=== PATIENT | male | born 1965 | race Caucasian/White ===

== ENCOUNTER 2017-08-31 10:55 | Emergency (ER) | payer OTHER ==
[2017-08-31] MEDS ORDERED: NA CHLORIDE 0.9% 500 ML ONE (12:24)
[2017-08-31] MEDS ORDERED: KETOROLAC 30 MG/ML INJ ONE (12:24)
[2017-08-31 12:40] LABS: Potassium 4.2 mEq/L (3.6-5.0)
[2017-08-31 12:56] LABS: Absolute Lymphocytes (CBC) 1.6 K/uL (0.7-4.9); Absolute Monocytes 0.6 K/uL (0.1-1.3); Absolute Neutrophil 9.6 K/uL (1.8-8.0); Basophils % 1.2 % (0-1.3); Eosinophils % 1.9 % (0-4.4); Hematocrit 43.8 % (39.6-49.0); Lymphocytes % 13.2 % (15.3-44.8); MCH 31.8 pg (27.0-35.0); MCV 93.3 fL (80-100); MPV 9.1 fL (7.6-11.3); Monocytes % 5.2 % (3.3-12.3)
--- NOTE | 2017-08-31 13:32 | RAD REPORT ---
EXAM DESCRIPTION: CT - Abdomen Pelvis W Contrast - 08/31/2017 1:18 pm CLINICAL HISTORY: Pt. states he has been having RUQ pain for one week. He also reports Hx of cholecy stectomy. States he is scheduled to have an US of liver on the but the pain is too bad to wait. COMPARISON: CT study December 2015 TECHNIQUE: Biphasic, helical CT imaging of the abdomen and pelvis was performed following 100 ml non -ionic IV contrast. Oral contrast was given. All CT scans are performed using dose optimization technique as appropriate and may include automated exposure control or mA/KV adjustment according to patient size. FINDINGS: No suspicious findings in the lung bases. No pericardial thickening or effusion. The liver, spleen, and pancreas show no suspicious findings. Cholecystectomy clips are present. No bi liary tree dilatation. Symmetric renal function is seen with no hydronephrosis or suspicious renal mass. No pyelonephritis o r acute renal parenchymal process. Left-sided renal cysts are similar to comparison. Minimal fullness of the adrenal glands unchanged back to 2016. No urinary bladder abnormality. Prostate gland and gaston inal vesicles show no acute findings. No dilated bowel loops or bowel wall thickening. No appendicitis findings. No free air, free fluid or inflammatory stranding. No hernia, mass or bulky lymphadenopathy. No suspicious bony findings. IMPRESSION: Status post cholecystectomy with no biliary tree dilatation. No pancreatitis or other ri ght upper quadrant abnormality. Remainder the study also without an acute or suspicious finding. No significant changes from comparis on study.
--- NOTE | 2017-08-31 14:01 | EDPHYS ---
Physician Documentation [facility] Name: Andrew Devries Age: 51 yrs Sex: Male : 1965 Arrival Date: 08/31/2017 Time: 10:57 Bed 20 Private MD: ED Physician Frank Callaway HPI: 08/31 12:28 This 51 yrs old Male presents to ER via Ambulatory with complaints of Side kdr Pain. 12:28 The patient presents with abdominal pain in the right upper quadrant. Onset: The kdr symptoms/episode began/occurred gradually, 2 week(s) ago. The symptoms do not radiate. Associated signs and symptoms: Pertinent positives: States that when he coughs, it hurts worse in the RUQ and he also has pain through his left shoulder.. The symptoms are described as achy, constant, crampy. Modifying factors: The symptoms are alleviated by nothing, the symptoms are aggravated by coughing, breathing deeply, movement. Severity of pain: At its worst the pain was severe in the emergency department the pain is unchanged. The patient has not experienced similar symptoms in the past. The patient has been recently seen by a physician: the patient's primary care provider, Had a CXR done which was reported to be negative by the patient. Historical: - Allergies: 11:03 PENICILLINS; la1 - PMHx: 11:03 GERD; Hypertension; schizoeffective disorder; la1 - PSHx: 11:03 Cholecystectomy; la1 - Immunization history:: Adult Immunizations up to date. - Social history:: Smoking status: Patient uses tobacco products, smokes two packs cigarettes per day. ROS: 12:28 Constitutional: Negative for fever, chills, and weight loss, Eyes: Negative for injury, kdr pain, redness, and discharge, ENT: Negative for injury, pain, and discharge, Neck: Negative for injury, pain, and swelling, Cardiovascular: Negative for chest pain, palpitations, and edema, Respiratory: Negative for shortness of breath, cough, wheezing, and pleuritic chest pain, Back: Negative for injury and pain, : Negative for injury, bleeding, discharge, and swelling, MS/Extremity: Negative for injury and deformity, Skin: Negative for injury, rash, and discoloration, Neuro: Negative for headache, weakness, numbness, tingling, and seizure activity. Psych: Negative for depression, anxiety, suicide ideation, homicidal ideation, and hallucinations, Allergy/Immunology: Negative for hives, rash, and allergies, Endocrine: Negative for neck swelling, polydipsia, polyuria, polyphagia, and marked weight changes, Hematologic/Lymphatic: Negative for swollen nodes, abnormal bleeding, and unusual bruising. 12:28 Abdomen/GI: Positive for abdominal pain, nausea, Negative for vomiting, diarrhea, constipation, abdominal cramps, abdominal distension, anorexia, dysphagia, hematemesis, black/tarry stool, rectal pain, rectal bleeding, bowel incontinence. Exam: 12:28 Constitutional: This is a well developed, well nourished patient who is awake, alert, kdr and in no acute distress. Head/Face: Normocephalic, atraumatic. Eyes: Pupils equal round and reactive to light, extra-ocular motions intact. Lids and lashes normal. Conjunctiva and sclera are non-icteric and not injected. Cornea within normal limits. Periorbital areas with no swelling, redness, or edema. Neck: Trachea midline, no thyromegaly or masses palpated, and no cervical lymphadenopathy. Supple, full range of motion without nuchal rigidity, or vertebral point tenderness. No Meningismus. Chest/axilla: Normal chest wall appearance and motion. Nontender with no deformity. No lesions are appreciated. Cardiovascular: Regular rate and rhythm with a normal S1 and S2. No gallops, murmurs, or rubs. Normal PMI, no JVD. No pulse deficits. Respiratory: Lungs have equal breath sounds bilaterally, clear to auscultation and percussion. No rales, rhonchi or wheezes noted. No increased work of breathing, no retractions or nasal flaring. Back: No spinal tenderness. No costovertebral tenderness. Full range of motion. Skin: Warm, dry with normal turgor. Normal color with no rashes, no lesions, and no evidence of cellulitis. MS/ Extremity: Pulses equal, no cyanosis. Neurovascular intact. Full, normal range of motion. Neuro: Awake and alert, GCS 15, oriented to person, place, time, and situation. Cranial nerves II-XII grossly intact. Motor strength 5/5 in all extremities. Sensory grossly intact. Cerebellar exam normal. Normal gait. Psych: Awake, alert, with orientation to person, place and time. Behavior, mood, and affect are within normal limits. 12:28 Abdomen/GI: Inspection: distension, that is moderate, obese Bowel sounds: active, diminished, in all quadrants, Palpation: soft, mild abdominal tenderness, in the right upper quadrant, Indicators: McBurney's point is not tender, Woodall's sign is positive, Rovsing's sign is negative, Obturator sign is negative. Vital Signs: 11:03 BP 147 / 85; Pulse 77; Resp 16; Temp 97.3; Pulse Ox 100% on R/A; Weight 113.4 kg; la1 Height 6 ft. 2 in. (187.96 cm); 13:10 BP 140 / 87; Pulse 65; Resp 17; Pulse Ox 96% on R/A; mh5 14:20 BP 138 / 84; Pulse 77; Resp 18; Pulse Ox 99% on R/A; Pain 6/10; em 11:03 Body Mass Index 32.10 (113.40 kg, 187.96 cm) la1 MDM: 12:28 Data reviewed: vital signs, nurses notes, lab test result(s), radiologic studies. kdr 13:59 Counseling: I had a detailed discussion with the patient and/or guardian regarding: the kdr historical points, exam findings, and any diagnostic results supporting the discharge/admit diagnosis, lab results, radiology results, the need for outpatient follow up. ED course: The patient has improved with the medications given though the pain has not completely resolved. 14:00 Patient medically screened. kdr 08/31 12:12 Order name: CBC with Diff; Complete Time: 13:52 kdr 08/31 12:12 Order name: Chem 7; Complete Time: 13:52 kdr 08/31 12:12 Order name: CT Abd/Pelvis - W/Contrast; Complete Time: 13:52 kdr 08/31 12:43 Order name: Labs - recollect needed; Complete Time: 12:51 ag Administered Medications: 12:50 Drug: NS 0.9% 500 ml Route: IV; Rate: bolus; Site: left antecubital; iw 13:36 Follow up: IV Status: Completed infusion; IV Intake: 500ml em 12:50 Drug: TORadol 30 mg Route: IVP; Site: left antecubital; iw 13:36 Follow up: Response: No adverse reaction em 14:36 Drug: [place] 10 mg-325 mg 1 tabs Route: PO; em 14:36 Follow up: Response: Medication administered at discharge. em 14:36 Drug: Robaxin 750 mg Route: PO; em 14:36 Follow up: Response: Medication administered at discharge. em Disposition: 18 14:00 Discharged to Home. Impression: Right infracostal rib pain, RUQ pain. - Condition is Stable. - Discharge Instructions: Muscle Pain, Adult, Abdominal Pain, Adult, [id number]. - Prescriptions for Robaxin 500 mg Oral Tablet - take 2 tablet by ORAL route every 6 hours As needed; 40 tablet. Tylenol- Codeine #3 300-30 mg Oral Tablet - take 2 tablets by ORAL route every 4-6 hours As needed; 15 tablet. - Medication Reconciliation Form, Thank You Letter, Antibiotic Education, Prescription Opioid Use form. - Follow up: Private Physician; When: 2 - 3 days; Reason: If symptoms return, Further diagnostic work-up, Recheck today's complaints, Continuance of care, Re-evaluation by your physician. - Problem is an ongoing problem. - Symptoms have improved. Signatures: Dispatcher [employer] EDMS Frank Callaway MD MD kdr Munoz, Edgar, TOWER EQUIPMENT REPAIRER TOWER EQUIPMENT REPAIRER em Marcie Benitez, Nael Plasencia RN, RN RN la1 Alesia Silvestre
--- NOTE | 2017-08-31 14:01 | ER ---
Nurse's Notes [facility] Name: Andrew Devries Age: 51 yrs Sex: Male : 1965 Arrival Date: 08/31/2017 Time: 10:57 Bed 20 Private MD: Diagnosis: Right infracostal rib pain, RUQ pain Presentation: 08/31 11:01 Presenting complaint: Patient states: I have been having RUQ pain for one week, pt la1 reports hx of cholecystectomy, states he is schedule to has US of liver on the but the pain is too bad to wait. Transition of care: patient was not received from another setting of care. Onset of symptoms was August 31, 2017. Care prior to arrival: None. 11:01 Method Of Arrival: Ambulatory la1 11: Acuity: MONTY 3 la1 Historical: - Allergies: 11:03 PENICILLINS; la1 - PMHx: 11:03 GERD; Hypertension; schizoeffective disorder; la1 - PSHx: 11:03 Cholecystectomy; la1 - Immunization history:: Adult Immunizations up to date. - Social history:: Smoking status: Patient uses tobacco products, smokes two packs cigarettes per day. Screenin:19 Abuse screen: Denies threats or abuse. Nutritional screening: No deficits noted. em Tuberculosis screening: No symptoms or risk factors identified. Fall Risk None identified. Assessment: 12:16 General: Appears in no apparent distress. uncomfortable, Behavior is calm, cooperative. em Pain: Complains of pain in right upper quadrant Pain currently is 8 out of 10 on a pain scale. Quality of pain is described as sharp. Neuro: Level of Consciousness is awake, alert, obeys commands, Oriented to person, place, time, situation. Cardiovascular: Capillary refill < 3 seconds Patient's skin is warm and dry. Respiratory: Airway is patent Respiratory effort is even, unlabored, Respiratory pattern is regular, symmetrical. GI: Abdomen is round distended, Bowel sounds present X 4 quads. Reports nausea, vomiting. : No signs and/or symptoms were reported regarding the genitourinary system. EENT: No signs and/or symptoms were reported regarding the EENT system. Derm: Skin is intact, Skin is pink, warm \T\ dry. Musculoskeletal: Range of motion: intact in all extremities. 12:50 Reassessment: Patient appears in no apparent distress at this time. I agree with above iw assessment by Chacorta Rivera. ENTRY LEVEL MANAGEMENT. 13:18 Reassessment: Patient appears in no apparent distress at this time. Patient and/or em family updated on plan of care and expected duration. Pain level reassessed. Patient is alert, oriented x 3, equal unlabored respirations, skin warm/dry/pink. 14:20 Reassessment: Patient appears in no apparent distress at this time. Patient and/or em family updated on plan of care and expected duration. Pain level reassessed. Patient is alert, oriented x 3, equal unlabored respirations, skin warm/dry/pink. rates pain 7/10 Patient states feeling better. Vital Signs: 11:03 BP 147 / 85; Pulse 77; Resp 16; Temp 97.3; Pulse Ox 100% on R/A; Weight 113.4 kg; la1 Height 6 ft. 2 in. (187.96 cm); 13:10 BP 140 / 87; Pulse 65; Resp 17; Pulse Ox 96% on R/A; mh5 14:20 BP 138 / 84; Pulse 77; Resp 18; Pulse Ox 99% on R/A; Pain 6/10; em 11:03 Body Mass Index 32.10 (113.40 kg, 187.96 cm) la1 ED Course: 10:57 Patient arrived in ED. tw3 10:59 Frank Callaway MD is Attending Physician. kdr 11:02 Triage completed. la1 11:03 Arm band placed on left wrist. la1 12:00 Chacorta Rivera LVN is Primary Nurse. em 12:19 Patient has correct armband on for positive identification. Bed in low position. Call em light in reach. Side rails up X2. 12:19 No provider procedures requiring assistance completed. em 13:16 CT completed. Patient moved to CT via wheelchair. Patient moved back from CT. cw1 13:19 CT Abd/Pelvis - W/Contrast In Process Unspecified. EDMS 14:39 IV discontinued, intact, bleeding controlled, No redness/swelling at site. Pressure em dressing applied. Administered Medications: 12:50 Drug: NS 0.9% 500 ml Route: IV; Rate: bolus; Site: left antecubital; iw 13:36 Follow up: IV Status: Completed infusion; IV Intake: 500ml em 12:50 Drug: TORadol 30 mg Route: IVP; Site: left antecubital; iw 13:36 Follow up: Response: No adverse reaction em 14:36 Drug: [place] 10 mg-325 mg 1 tabs Route: PO; em 14:36 Follow up: Response: Medication administered at discharge. em 14:36 Drug: Robaxin 750 mg Route: PO; em 14:36 Follow up: Response: Medication administered at discharge. em Intake: 13:36 IV: 500ml; Total: 500ml. em Outcome: 14:00 Discharge ordered by . kdr 14:39 Discharged to home ambulatory. em 14:39 Condition: good 14:39 Discharge instructions given to patient, Instructed on discharge instructions, follow up and referral plans. medication usage, Demonstrated understanding of instructions, follow-up care, medications, Prescriptions given X 2. 14:40 Patient left the ED. em Signatures: Dispatcher [employer] EDMS Frank Callaway MD MD kdr Munoz, Edgar, ENTRY LEVEL MANAGEMENT ENTRY LEVEL MANAGEMENT em Marcie Benitez, RN Ambreen Monteiro cw1 Nael June RN RN Jazzmine Porter 5 Mateo, Tia tw3
[2017-08-31] MEDS ORDERED: HYDROCODONE/APAP 10/325 TAB ONE (14:28)
[2017-08-31] MEDS ORDERED: METHOCARBAMOL 500 MG TAB ONE (14:29)
[2017-08-31 14:47] VITALS: TEMP 97.3
[2017-08-31 14:49] VITALS: BP 138/84; O2SAT 99
== END 2017-08-31 14:40 | disposition home or self-care (01) ==
LOC: ER 10:55
DX: R07.81 Pleurodynia (principal); I10 Essential (primary) hypertension; F17.210 Nicotine dependence, cigarettes, uncomplicated; Z88.0 Allergy status to penicillin
CPT/HCPCS: 36415; 74177; 80048; 85025; 96361; 96374; 99284; Q9967

== ENCOUNTER 2018-02-02 16:43 | Emergency (ER) | payer OTHER ==
--- NOTE | 2018-02-02 17:52 | ER ---
Nurse's Notes [facility] Name: Andrew Devries Age: 52 yrs Sex: Male : 1965 Arrival Date: 02/02/2018 Time: 16:45 Bed 17 Private MD: Vik Diaz R Diagnosis: Conjunctival hemorrhage, right eye Presentation: 02/02 16:50 Presenting complaint: Patient states: I checked my BP 190/120 at home, my BP meds have la1 not been working for the last few weeks and I got some blood around my eye this morning. Transition of care: patient was not received from another setting of care. Onset of symptoms was February 02, 2018. Risk Assessment: Do you want to hurt yourself or someone else? Patient reports no desire to harm self or others. Initial Sepsis Screen: Does the patient meet any 2 criteria? No. Patient's initial sepsis screen is negative. Does the patient have a suspected source of infection? No. Patient's initial sepsis screen is negative. Care prior to arrival: None. 16:50 Method Of Arrival: Ambulatory la1 16:50 Acuity: MONTY 3 la1 Triage Assessment: 17:04 General: Appears in no apparent distress. uncomfortable, Behavior is calm, cooperative, hj appropriate for age. Pain: Complains of pain in eye. EENT: Reports pain. Neuro: Level of Consciousness is awake, alert, obeys commands, Oriented to person, place, time, situation, Appropriate for age. Cardiovascular: Capillary refill < 3 seconds Patient's skin is warm and dry. Respiratory: Airway is patent Respiratory effort is even, unlabored, Respiratory pattern is regular, symmetrical. GI: No signs and/or symptoms were reported involving the gastrointestinal system. : No signs and/or symptoms were reported regarding the genitourinary system. Derm: No signs and/or symptoms reported regarding the dermatologic system. Musculoskeletal: No signs and/or symptoms reported regarding the musculoskeletal system. Historical: - Allergies: 16:51 PENICILLINS; la1 - Home Meds: 17:03 lisinopril 40 mg Oral tab 1 tab once daily [Active]; atorvastatin 20 mg oral tab 1 tab hj once daily [Active]; - PMHx: 16:51 GERD; Hypertension; schizoeffective disorder; la1 - PSHx: 17:03 Cholecystectomy; hj - Immunization history:: Adult Immunizations up to date. - Social history:: Smoking status: Patient uses tobacco products, smokes two packs cigarettes per day. - Ebola Screening: : No symptoms or risks identified at this time. Screenin:04 Abuse screen: Denies threats or abuse. Denies injuries from another. Nutritional hj screening: No deficits noted. Tuberculosis screening: No symptoms or risk factors identified. Fall Risk None identified. Assessment: 17:00 Reassessment: see triage for assessment; provider in room;. hj Vital Signs: 16:51 BP 151 / 101; Pulse 98; Resp 16; Temp 97.5; Pulse Ox 97% on R/A; Weight 102.06 kg; la1 Height 6 ft. 2 in. (187.96 cm); 18:04 BP 152 / 98; Pulse 92; Resp 18; Pulse Ox 100% on R/A; hj 16:51 Body Mass Index 28.89 (102.06 kg, 187.96 cm) la1 Visual Acuity: 18:03 Left Eye Visual acuity 20/25, Normal, React To Light, Reactive To Accomodation; Right hj Eye Visual acuity 20/25, Normal, React To Light, Reactive To Accomodation; Both Eyes Visual acuity 20/30; With Lenses; ED Course: 16:45 Patient arrived in ED. mr 16:45 Vik Diaz MD is Private Physician. mr 16:50 Triage completed. la1 16:51 Arm band placed on left wrist. la1 17:01 Giuseppe Herbert RN is Primary Nurse. hj 17:05 Patient has correct armband on for positive identification. Placed in gown. Bed in low hj position. Call light in reach. Side rails up X 1. 17:12 Michael Moran NP is PHCP. pm1 17:12 Apurva Roman MD is Attending Physician. pm1 17:13 Missed attempt(s): 22 gauge in left hand. Bleeding controlled, band aid applied, tw2 catheter tip intact. Missed attempt(s): 22 gauge in left hand. Bleeding controlled, band aid applied, catheter tip intact. 17:51 Vik Diaz MD is Referral Physician. pm1 18:03 No provider procedures requiring assistance completed. Patient did not have IV access hj during this emergency room visit. Administered Medications: No medications were administered Outcome: 17:52 Discharge ordered by . pm1 18:03 Discharged to home ambulatory. 18:03 Condition: stable 18:03 Discharge instructions given to patient, Instructed on discharge instructions, follow up and referral plans. Demonstrated understanding of instructions, follow-up care. 18:14 Patient left the ED. Signatures: Jazzmine Ocampo Lee, RN RN la1 Giuseppe Herbert RN RN hj Michael Moran, [employer] CREW SUPERVISOR pm1 Guerita Woods RN RN tw2
--- NOTE | 2018-02-02 17:52 | EDPHYS ---
Physician Documentation [facility] Name: Andrew Devries Age: 52 yrs Sex: Male : 1965 Arrival Date: 02/02/2018 Time: 16:45 Bed 17 Private MD: Vik Diaz R ED Physician Apurva Roman HPI: 02/02 17:49 This 52 yrs old Male presents to ER via Ambulatory with complaints of Redness pm1 of Eye, High Blood Pressure. 17:49 The patient is experiencing redness, The patient sustained None. to the right eye, pm1 caused by an unknown mechanism. Onset: The symptoms/episode began/occurred today. Duration: the symptoms are continuous. Aggravated by nothing. Alleviated by nothing. Associated signs and symptoms: Pertinent positives: elevated blood pressure for the past few weeks, Pertinent negatives: fever, headache. Patient wears glasses. Severity of symptoms: in the emergency department the symptoms are unchanged. The patient has not experienced similar symptoms in the past. Patient weaned himself of benzodiazepine for anxiety with the assistance of his PCP. However he has noticed that his blood pressure has been going up over the past few weeks. This morning he had redness in his right eye. No eye pain or visual changes. Historical: - Allergies: 16:51 PENICILLINS; la1 - Home Meds: 17:03 lisinopril 40 mg Oral tab 1 tab once daily [Active]; atorvastatin 20 mg oral tab 1 tab hj once daily [Active]; - PMHx: 16:51 GERD; Hypertension; schizoeffective disorder; la1 - PSHx: 17:03 Cholecystectomy; hj - Immunization history:: Adult Immunizations up to date. - Social history:: Smoking status: Patient uses tobacco products, smokes two packs cigarettes per day. - Ebola Screening: : No symptoms or risks identified at this time. ROS: 17:49 Constitutional: Negative for fever, chills, and weight loss. pm1 17:49 ENT: Negative for injury, pain, and discharge, Neck: Negative for injury, pain, and swelling, Cardiovascular: Negative for chest pain, palpitations, and edema, Respiratory: Negative for shortness of breath, cough, wheezing, and pleuritic chest pain, Abdomen/GI: Negative for abdominal pain, nausea, vomiting, diarrhea, and constipation, Back: Negative for injury and pain, : Negative for injury, bleeding, discharge, and swelling, MS/Extremity: Negative for injury and deformity, Skin: Negative for injury, rash, and discoloration, Neuro: Negative for headache, weakness, numbness, tingling, and seizure. 17:49 Eyes: Positive for redness, Negative for blurry vision, discharge. Exam: 17:49 Constitutional: This is a well developed, well nourished patient who is awake, alert, pm1 and in no acute distress. Head/Face: Normocephalic, atraumatic. ENT: Nares patent. No nasal discharge, no septal abnormalities noted. Tympanic membranes are normal and external auditory canals are clear. Oropharynx with no redness, swelling, or masses, exudates, or evidence of obstruction, uvula midline. Mucous membranes moist. Neck: Trachea midline, no thyromegaly or masses palpated, and no cervical lymphadenopathy. Supple, full range of motion without nuchal rigidity, or vertebral point tenderness. No Meningismus. Chest/axilla: Normal chest wall appearance and motion. Nontender with no deformity. No lesions are appreciated. 17:49 Cardiovascular: Regular rate and rhythm with a normal S1 and S2. No gallops, murmurs, or rubs. Normal PMI, no JVD. No pulse deficits. Respiratory: Lungs have equal breath sounds bilaterally, clear to auscultation and percussion. No rales, rhonchi or wheezes noted. No increased work of breathing, no retractions or nasal flaring. Abdomen/GI: Soft, non-tender, with normal bowel sounds. No distension or tympany. No guarding or rebound. No evidence of tenderness throughout. Back: No spinal tenderness. No costovertebral tenderness. Full range of motion. Skin: Warm, dry with normal turgor. Normal color with no rashes, no lesions, and no evidence of cellulitis. MS/ Extremity: Pulses equal, no cyanosis. Neurovascular intact. Full, normal range of motion. 17:49 Eyes: Periorbital structures: appear normal, Pupils: no acute changes, Extraocular movements: intact throughout, Conjunctiva: subconjunctival hemorrhage(s), seen in the right eye. 17:49 Neuro: Orientation: is normal, Motor: moves all fours. 17:52 Visual Acuity: I have reviewed the nursing documentation. pm1 Vital Signs: 16:51 BP 151 / 101; Pulse 98; Resp 16; Temp 97.5; Pulse Ox 97% on R/A; Weight 102.06 kg; la1 Height 6 ft. 2 in. (187.96 cm); 18:04 BP 152 / 98; Pulse 92; Resp 18; Pulse Ox 100% on R/A; hj 16:51 Body Mass Index 28.89 (102.06 kg, 187.96 cm) la1 Visual Acuity: 18:03 Left Eye Visual acuity 20/25, Normal, React To Light, Reactive To Accomodation; Right hj Eye Visual acuity 20/25, Normal, React To Light, Reactive To Accomodation; Both Eyes Visual acuity 20/30; With Lenses; MDM: 17:12 Patient medically screened. pm1 17:49 Data reviewed: vital signs. Data interpreted: Pulse oximetry: on room air is 97 %. pm1 Interpretation: normal. Counseling: I had a detailed discussion with the patient and/or guardian regarding: the historical points, exam findings, and any diagnostic results supporting the discharge/admit diagnosis, the need for outpatient follow up, PCP for blood pressure management. Administered Medications: No medications were administered Disposition: 18:16 Co-signature as Attending Physician, Apurva Roman MD. ma2 Disposition: 02/02/18 17:52 Discharged to Home. Impression: Conjunctival hemorrhage, right eye. - Condition is Stable. - Discharge Instructions: Subconjunctival Hemorrhage. - Medication Reconciliation Form, Thank You Letter, Antibiotic Education, Prescription Opioid Use form. - Follow up: Vik Diaz MD; When: Tomorrow as discussed; Reason: Recheck today's complaints, Continuance of care, Re-evaluation by your physician. Follow up: Emergency Department; When: As needed; Reason: Worsening of condition. - Problem is new. - Symptoms have improved. Signatures: Nael June RN RN la Giuseppe Herbert RN RN Michael Moran, [employer] pm1 Apurav Roman MD MD ma2 Corrections: (The following items were deleted from the chart) 18:14 17:52 02/02/2018 17:52 Discharged to Home. Impression: Conjunctival hemorrhage, right hj eye. Condition is Stable. Forms are Medication Reconciliation Form, Thank You Letter, Antibiotic Education, Prescription Opioid Use. Follow up: Vik Diaz; When: Tomorrow as discussed; Reason: Recheck today's complaints, Continuance of care, Re-evaluation by your physician. Follow up: Emergency Department; When: As needed; Reason: Worsening of condition. Problem is new. Symptoms have improved. pm1
[2018-02-02 18:28] VITALS: TEMP 97.5
[2018-02-02 18:29] VITALS: BP 152/98; O2SAT 100
--- NOTE | 2018-02-03 19:27 | EKG ---
Test Date: 2018-02-02 Test Time: 17:09:52 Communications Technologist: CHRIS MEASUREMENT RESULTS: Intervals: Rate: 82 IN: 184 QRSD: 102 QT: 364 QTc: 425 [place]: P: 23 IN: 184 QRS: 113 T: 69 INTERPRETIVE STATEMENTS: Normal sinus rhythm Right axis deviation Incomplete right bundle branch block Abnormal ECG Compared to ECG 12/01/2014 10:18:14 Right-axis deviation now present Incomplete right bundle-branch block now present Indeterminate axis no longer present Myocardial infarct finding no longer present Electronically Signed On 02-03-18 19:24:26 CDT by Ludwin Fritz
== END 2018-02-02 18:14 | disposition home or self-care (01) ==
LOC: ER 16:43
DX: H11.31 Conjunctival hemorrhage, right eye (principal); I10 Essential (primary) hypertension; F25.9 Schizoaffective disorder, unspecified; K21.9 Gastro-esophageal reflux disease without esophagitis; F17.210 Nicotine dependence, cigarettes, uncomplicated; Z88.0 Allergy status to penicillin
CPT/HCPCS: 93005; 99282

== ENCOUNTER 2018-04-16 15:52 | Observation (INO) | payer OTHER ==
[2018-04-16 16:44] VITALS: BMI 29.7
[2018-04-16] MEDS ORDERED: NACHLORIDE 0.45% 1,000 ML IV SCH (17:00)
[2018-04-16 17:06] LABS: Absolute Neutrophil 7.6 K/uL (1.8-8.0); Eosinophils % 2.2 % (0-4.4); Hematocrit 42.6 % (39.6-49.0); Lymphocytes % 18.1 % (15.3-44.8); MCH 32.7 pg (27.0-35.0); MCV 91.1 fL (80-100); MPV 8.3 fL (7.6-11.3); Monocytes % 8.9 % (3.3-12.3); RBC Red Blood Cell Count 4.67 M/uL (4.33-5.43)
[2018-04-16 17:25] LABS: Albumin 4.2 g/dL (3.4-5.0); Bilirubin Total 0.4 mg/dL (0.2-1.0); Potassium 4.1 mmol/L (3.5-5.1)
[2018-04-16 19:32] LABS: Urine Appearance CLEAR; Urine Bilirubin NEGATIVE (NEG); Urine Blood NEGATIVE (NEG); Urine Color YELLOW; Urine Glucose NEGATIVE (NEG); Urine Protein TRACE (NEG); Urine Specific Gravity 1.015 (1.005-1.030); Urine Urobilinogen 0.2 mg/dL (0.2-1.0)
[2018-04-16 19:52] LABS: Urine Microscopic Reflex NO UMIC
--- NOTE | 2018-04-16 20:27 | RAD REPORT ---
EXAM DESCRIPTION: CT - Abdomen Pelvis W Contrast - 04/16/2018 7:54 pm CLINICAL HISTORY: Right-sided abdominal pain, nausea, decreasing appetite, decreased bowel movement COMPARISON: CT August 2017 TECHNIQUE: Biphasic, helical CT imaging of the abdomen and pelvis was performed following 100 ml non -ionic IV contrast. Oral contrast was given. All CT scans are performed using dose optimization technique as appropriate and may include automated exposure control or mA/KV adjustment according to patient size. FINDINGS: No suspicious findings in the lung bases. The liver, spleen, and pancreas show no suspicious findings. Cholecystectomy clips are present. No bi liary tree dilatation. Symmetric renal function is seen with no hydronephrosis or suspicious renal mass. No pyelonephritis o r acute renal parenchymal process. No urinary bladder abnormality. No dilated bowel loops or bowel wall thickening. Appendix is normal. Mild to moderate stool volume sc attered throughout the colon. No active colon process seen. No free air, free fluid or inflammatory s tranding. No hernia, mass or bulky lymphadenopathy. No adrenal abnormality. No suspicious bony findings. IMPRESSION: Contrast enhanced CT abdomen and pelvis showing no significant or suspicious finding. N o suspicious change from comparison.
[2018-04-16] MEDS: NACHLORIDE 0.45% 1,000 ML IV SCH (20:51)
[2018-04-16] MEDS ORDERED: BISACODYL E.C. 5 MG TAB PO ONE (21:33)
[2018-04-16 23:06] VITALS: O2SAT 99
[2018-04-17] MEDS: NACHLORIDE 0.45% 1,000 ML IV SCH ×2 (01:11→06:02)
[2018-04-17] MEDS ORDERED: NA CHLORIDE 0.9% 1,000 ML IV SCH (08:00)
[2018-04-17 08:25] VITALS: BP 117/67; TEMP 97.7
[2018-04-17] MEDS ORDERED: CARBAMAZEPINE 200 MG TAB PO SCH (09:00)
[2018-04-17] MEDS ORDERED: QUETIAPINE 100MG TAB PO SCH (21:00)
--- NOTE | 2018-04-18 05:07 | HP ---
Date of Admission: 04/16/2018 Chief Complaint: Abdominal pain, constipation, inability to eat. History Of Present Illness: A 52-year-old male was brought to the office with a history of abdominal pain, distention, and difficulty with eating. Examination showed diffuse tenderness. It was not cl ear whether the patient was having bowel obstruction. The patient was admitted for observation. The re is no history of fever, chills, or rigors. Past Medical History: Positive for bipolar disorder, hypertension, COPD. Past Surgical History: Positive for gallbladder surgery. Allergies: PENICILLIN. Family History: Noncontributory. Review of Systems: No fever, chills, rigors. Physical Examination: General: Revealed a 52-year-old male, in [id number] pain. HEENT: Otherwise negative. Vital Signs: Normal. Neck: Supple. JVD negative. Chest: Clear. Heart: Regular. Abdomen: Diffuse mild tenderness. Bowel sounds present. Extremities: No edema. Laboratory: White count normal. Sodium 125. CAT scan of the abdomen, no evidence of bowel obstruct ion. Assessment: 1.Abdominal pain. 2.Hyponatremia. 3.Bipolar disorder. 4.Hypertension. 5.Chronic obstructive pulmonary disease. Plan: The patient had IV fluids in the form of normal saline. 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 He was advised to follow up in the office to have recheck of his sodium and to have a colonoscopy because of his constipation. He was a dvised not to take any pain medications that will increase his problem of constipation. WHITNEY/KALYN Voice ID: [id number]
== END 2018-04-17 09:54 | disposition home or self-care (01) ==
LOC: 4TH 16:23
PROVIDERS: ADMIT Internal Medicine; ATTEND Internal Medicine
DX: R10.9 Unspecified abdominal pain (principal); E87.1 Hypo-osmolality and hyponatremia; F31.9 Bipolar disorder, unspecified; I10 Essential (primary) hypertension; J44.9 Chronic obstructive pulmonary disease, unspecified; Z88.0 Allergy status to penicillin
CPT/HCPCS: 36415; 74177; 80053; 81003; 85025; 87088; G0103; G0378; G0379; Q9967; 87086

== ENCOUNTER 2019-10-16 12:45 | Emergency (ER) | payer OTHER ==
[2019-10-16 14:12] LABS: Basophils % 1.1 % (0-1.3); Hematocrit 42.9 % (39.6-49.0); Lymphocytes % 28.8 % (15.3-44.8); RBC Red Blood Cell Count 4.57 M/uL (4.33-5.43)
[2019-10-16 14:16] LABS: Protime INR 0.93
[2019-10-16 14:39] LABS: ALT/SGPT 28 U/L (12-78); AST/SGOT 15 U/L (15-37); Albumin 3.6 g/dL (3.4-5.0); Alkaline Phosphatase 118 U/L (45-117); BUN Blood Urea Nitrogen 14 mg/dL (7-18); Bicarbonate 22 mmol/L (21-32); Bilirubin Direct < 0.1 mg/dL (0-0.2); Bilirubin Total 0.2 mg/dL (0.2-1.0); Creatine Phosphokinase 108 U/L (39-308); Glucose Level 114 mg/dL (74-106); Lipase 148 U/L (73-393); Magnesium 2.1 mg/dL (1.8-2.4); NT PRO-BNP 72 pg/mL (<125); Potassium 4.1 mmol/L (3.5-5.1); Protein, Total 7.7 g/dL (6.4-8.2); Sodium Level 135 mmol/L (136-145); Troponin (Emerg Dept Use Only) < 0.02 ng/mL (0.0-0.045)
[2019-10-16] MEDS ORDERED: LEVALBUTEROL 1.25 MG/3 ML NEB ONE (14:53)
[2019-10-16] MEDS ORDERED: NA CHLORIDE 0.9% 250 ML ONE (14:53)
[2019-10-16] MEDS ORDERED: IPRATROPIUM BROM 0.5MG/2.5ML ONE (14:53)
[2019-10-16] MEDS ORDERED: AZITHROMYCIN 500 MG INJ IVPB ONE (14:53)
[2019-10-16] MEDS ORDERED: METHYLPREDNISOLONE 125 MG INJ ONE (14:53)
[2019-10-16] MEDS ORDERED: NA CHLORIDE 0.9% 1,000 ML ONE (14:54)
[2019-10-16] MEDS ORDERED: CEFTRIAXONE/SWI 1gm 1 GM/10 ML SYR ONE (14:54)
--- NOTE | 2019-10-16 15:01 | RAD REPORT ---
EXAM DESCRIPTION: [place] Single View10/16/2019 2:43 pm CLINICAL HISTORY: Cough COMPARISON: May 2019 FINDINGS: The lungs appear clear of acute infiltrate. The heart is normal size IMPRESSION: No acute abnormalities displayed
[2019-10-16] MEDS ORDERED: predniSONE 20 MG TAB ONE ×2 (15:20→15:24)
[2019-10-16 17:20] VITALS: BP 118/81; TEMP 98.2; O2SAT 100
--- NOTE | 2019-10-17 12:56 | EKG ---
Test Date: 2019-10-16 Test Time: 14:08:59 Medical Device: MANAS MEASUREMENT RESULTS: Intervals: Rate: 73 DC: 162 QRSD: 96 QT: 372 QTc: 409 [place]: P: 12 DC: 162 QRS: 97 T: 77 INTERPRETIVE STATEMENTS: Normal sinus rhythm Rightward axis Possible Inferior infarct, age undetermined Abnormal ECG Electronically Signed On 10-17-19 12:55:24 CDT by Ludwin Fritz
--- NOTE | 2019-10-19 17:08 | EDPHYS ---
Physician Documentation [facility] Name: Andrew Devries Age: 53 yrs Sex: Male : 1965 Arrival Date: 10/16/2019 Time: 12:47 Bed 16 Private MD: Vik Diaz R ED Physician Chris Christian HPI: 10/15 14:24 This 53 yrs old Male presents to ER via Ambulatory with complaints of burke Breathing Difficulty. 14:24 The patient has shortness of breath at rest, with light activity. Onset: The burke symptoms/episode began/occurred 5 day(s) ago. Duration: The symptoms are continuous, and are steadily getting worse. The patient's shortness of breath is aggravated by coughing, talking, walking, is alleviated by nebulizer treatment, rest, application of supplemental oxygen. Associated signs and symptoms: Pertinent positives: non-productive cough, fever. Severity of symptoms: At their worst the symptoms were mild moderate in the emergency department the symptoms are unchanged. The patient has experienced similar episodes in the past, a few times. Historical: - Allergies: 12:55 PENICILLINS; ph - PMHx: 12:55 GERD; Hypertension; schizoeffective disorder; COPD; ph - PSHx: 12:55 Cholecystectomy; ph - Immunization history:: Adult Immunizations unknown. - Social history:: Smoking status: Patient reports the use of cigarette tobacco products, smokes one pack cigarettes per day. ROS: 14:25 Constitutional: Negative for fever, chills, and weight loss, Eyes: Negative for injury, burke pain, redness, and discharge, ENT: Negative for injury, pain, and discharge, Neck: Negative for injury, pain, and swelling, Cardiovascular: Negative for chest pain, palpitations, and edema, Abdomen/GI: Negative for abdominal pain, nausea, vomiting, diarrhea, and constipation, Back: Negative for injury and pain, : Negative for injury, bleeding, discharge, and swelling, MS/Extremity: Negative for injury and deformity, Skin: Negative for injury, rash, and discoloration, Neuro: Negative for headache, weakness, numbness, tingling, and seizure, Psych: Negative for depression, anxiety, suicide ideation, homicidal ideation, and hallucinations, Allergy/Immunology: Negative for hives, rash, and allergies, Endocrine: Negative for neck swelling, polydipsia, polyuria, polyphagia, and marked weight changes, Hematologic/Lymphatic: Negative for swollen nodes, abnormal bleeding, and unusual bruising. 14:25 Respiratory: Positive for cough, shortness of breath, at rest. worse outside, heat. 14:25 MS/extremity: Negative for swelling, tenderness. Exam: 14:25 Constitutional: This is a well developed, well nourished patient who is awake, alert, burke and in no acute distress. Head/Face: Normocephalic, atraumatic. Eyes: Pupils equal round and reactive to light, extra-ocular motions intact. Lids and lashes normal. Conjunctiva and sclera are non-icteric and not injected. Cornea within normal limits. Periorbital areas with no swelling, redness, or edema. ENT: Nares patent. No nasal discharge, no septal abnormalities noted. Tympanic membranes are normal and external auditory canals are clear. Oropharynx with no redness, swelling, or masses, exudates, or evidence of obstruction, uvula midline. Mucous membranes moist. Neck: Trachea midline, no thyromegaly or masses palpated, and no cervical lymphadenopathy. Supple, full range of motion without nuchal rigidity, or vertebral point tenderness. No Meningismus. Chest/axilla: Normal chest wall appearance and motion. Nontender with no deformity. No lesions are appreciated. Cardiovascular: Regular rate and rhythm with a normal S1 and S2. No gallops, murmurs, or rubs. Normal PMI, no JVD. No pulse deficits. Abdomen/GI: Soft, non-tender, with normal bowel sounds. No distension or tympany. No guarding or rebound. No evidence of tenderness throughout. Back: No spinal tenderness. No costovertebral tenderness. Full range of motion. Male : Normal genitalia with no discharge or lesions. Skin: Warm, dry with normal turgor. Normal color with no rashes, no lesions, and no evidence of cellulitis. MS/ Extremity: Pulses equal, no cyanosis. Neurovascular intact. Full, normal range of motion. Neuro: Awake and alert, GCS 15, oriented to person, place, time, and situation. Cranial nerves II-XII grossly intact. Motor strength 5/5 in all extremities. Sensory grossly intact. Cerebellar exam normal. Normal gait. Psych: Awake, alert, with orientation to person, place and time. Behavior, mood, and affect are within normal limits. 14:25 Respiratory: the patient does not display signs of respiratory distress, Respirations: normal, no acute changes, labored breathing, is not present, Breath sounds: are clear throughout, decreased breath sounds, that are moderate, are located in both bases, Respiratory rate: 24 14:32 ECG was reviewed by the Attending Physician. [facility] Vital Signs: 12:51 BP 118 / 81; Pulse 88; Resp 24; Temp 98.2; Pulse Ox 100% on R/A; Weight 102.06 kg; ph Height 6 ft. 2 in. (187.96 cm); 15:25 Pulse 68; Resp 18 S; Pulse Ox 100% on Non-rebreather mask; iw 12:51 Body Mass Index 28.89 (102.06 kg, 187.96 cm) ph MDM: 13:02 Patient medically screened. [facility] 14:27 Data reviewed: vital signs, nurses notes, lab test result(s), EKG, radiologic studies. [facility] 14:27 Differential diagnosis: asthma, Bronchitis CHF exacerbation, Chronic Obstructive burke Pulmonary Disease pneumonia, Pneumothorax pulmonary edema, Pulmonary Embolism reactive airway disease. Antibiotic administration: Rocephin and Zithromax given. The patient's Wells Deep Vein Thrombosis Score was calculated as follows: Total Score: 0-2 Pts- Low Risk. The patient's pulmonary embolism risk score was calculated as follows: Total Score: 0-2 points. This patient was found to be at low risk for a pulmonary embolism by using the Well's assessment criteria. Immunization status: Influenza vaccine: Data interpreted: pvc monitor: rate is 88 beats/min, rhythm is normal sinus rhythm, regular, Pulse oximetry: on 2L(s) per nasal canula, is 100 %. Test interpretation: by ED physician or midlevel provider: ECG, plain radiologic studies. 15:47 Counseling: I had a detailed discussion with the patient and/or guardian regarding: the [facility] historical points, exam findings, and any diagnostic results supporting the discharge/admit diagnosis, the presence of at least one elevated blood pressure reading (>120/80) during this emergency department visit, lab results, radiology results, the need for outpatient follow up, for definitive care, a instructional media services technician. Medication response: albuterol nebulizer treatment(s) markedly relieved the patient's wheezing. 15:48 Response to treatment: the patient's symptoms have markedly improved after treatment, burke the patient's condition has returned to base line. ED course: pt much improved, encouraged to stop smoking, will follow up , take meds, return if worse. 10/15 13:28 Order name: Blood Culture Adult (2) [facility] 10/15 13:28 Order name: BMP; Complete Time: 15:01 [facility] 10/15 13:28 Order name: CBC with Diff; Complete Time: 14:30 [facility] 10/15 13:28 Order name: Ckmb; Complete Time: 15:01 [facility] 10/15 13:28 Order name: CPK; Complete Time: 15:01 [facility] 10/15 13:28 Order name: Hepatic Function; Complete Time: 15:01 [facility] 10/15 13:28 Order name: Lipase; Complete Time: 15:01 [facility] 10/15 13:28 Order name: Magnesium; Complete Time: 15:01 [facility] 10/15 13:28 Order name: NT PRO-BNP; Complete Time: 15:01 [facility] 10/15 13:28 Order name: PT-INR; Complete Time: 14:30 [facility] 10/15 13:28 Order name: Ptt, Activated; Complete Time: 14:30 [facility] 10/15 13:28 Order name: Troponin (emerg Dept Use Only); Complete Time: 15:01 [facility] 10/15 14:05 Order name: Strep; Complete Time: 17:10 [facility] 10/15 14:05 Order name: Flu; Complete Time: 17:10 [facility] 10/15 13:28 Order name: EKG; Complete Time: 13:29 [facility] 10/15 13:28 Order name: Cardiac monitoring; Complete Time: 14:19 [facility] 10/15 13:28 Order name: EKG - Nurse/Tech; Complete Time: 14:19 [facility] 10/15 13:28 Order name: IV Saline Lock; Complete Time: 14:20 [facility] 10/15 13:28 Order name: Labs collected and sent; Complete Time: 14:20 [facility] 10/15 14:05 Order name: COVID-19: fever cough, sob [facility] 10/15 14:24 Order name: Chest Single View XRAY; Complete Time: 15:35 [facility] 10/15 15:02 Order name: D-Dimer; Complete Time: 15:44 [facility] 10/15 15:49 Order name: Throat Culture EDMS 10/15 13:28 Order name: O2 Per Protocol; Complete Time: 14:20 ls4 10/15 13:28 Order name: O2 Sat Monitoring; Complete Time: 14:20 ls4 EC:32 Rate is 73 beats/min. Rhythm is regular. QRS [place] is Normal. [place] interval is normal. QRS burke interval is normal. QT interval is normal. No Q waves. T waves are Normal. No ST changes noted. Clinical impression: NSR w/ Non-specific ST/T Changes and No evidence of ischemia. Interpreted by me. Reviewed by me. Administered Medications: 14:45 Drug: SOLU-Medrol 125 mg Route: IVP; Site: left antecubital; iw 14:50 Drug: Rocephin 1 grams Route: IV; Rate: per protocol; Site: left antecubital; iw 15:00 Drug: Zithromax 500 mg Route: IVPB; Infused Over: 1 hrs; Site: left antecubital; iw 15:08 Drug: NS 0.9% 1000 ml Route: IV; Rate: 125 ml/hr; Site: left antecubital; iw 15:22 Drug: predniSONE 40 mg Route: PO; iw 15:26 Drug: AtroVENT Aerosol 0.5 mg Route: Inhalation; iw 15:27 Drug: Xopenex 3.75 mg Route: Inhalation; iw Disposition: 10/16/19 15:54 Discharged to Home. Impression: Dyspnea, Chronic obstructive pulmonary disease with (acute) exacerbation, Tobacco abuse counseling, Tobacco use. - Condition is Stable. - Discharge Instructions: Chronic Bronchitis, Chronic Obstructive Pulmonary Disease, How to Use an Inhaler, Shortness of Breath, Steps to Quit Smoking, Smoking Hazards, Shortness of Breath, [id number], Chronic Obstructive Pulmonary Disease Exacerbation, Chronic Obstructive Pulmonary Disease, Rjme-[id number], Steps to Quit Smoking, Adpm-zy-Fads, Chronic Obstructive Pulmonary Disease Exacerbation, [id number]-[id number]. - Prescriptions for Albuterol Sulfate 2.5 mg /3 mL (0.083 %) Inhalation Solution for Nebulization - inhale 1 unit by NEBULIZATION route every 8 hours As needed; 1 box. Prednisone 20 mg Oral Tablet - take 2 tablet by ORAL route once daily for 5 days; 10 tablet. Albuterol Sulfate 90 mcg/actuation - inhale 1-2 puff by INHALATION route every 4-6 hours; 1 Inhaler. Zithromax 500 mg Oral Tablet - take 1 tablet by ORAL route once daily for 4 days; 4 tablet. - Medication Reconciliation Form, Thank You Letter, Antibiotic Education, Prescription Opioid Use form. - Follow up: Vik Diaz MD; When: 2 - 3 days; Reason: Recheck today's complaints, Continuance of care, Re-evaluation by your physician. Follow up: Navin Johnson MD; When: 2 - 3 days; Reason: Recheck today's complaints, Re-evaluation by your physician. - Problem is new. - Symptoms have improved. Signatures: Dispatcher [employer] EDMS Chris Christian MD MD cha Williams, Irene RN RN iw Ana Schwarz RN RN Hermelinda Florence RN RN ls4 Corrections: (The following items were deleted from the chart) 17:11 15:54 10/16/2019 15:54 Discharged to Home. Impression: Dyspnea; Chronic obstructive iw pulmonary disease with (acute) exacerbation; Tobacco abuse counseling; Tobacco use. Condition is Stable. Forms are Medication Reconciliation Form, Thank You Letter, Antibiotic Education, Prescription Opioid Use. Follow up: Vik Diaz; When: 2 - 3 days; Reason: Recheck today's complaints, Continuance of care, Re-evaluation by your physician. Follow up: Navin Johnson; When: 2 - 3 days; Reason: Recheck today's complaints, Re-evaluation by your physician. Problem is new. Symptoms have improved. burke
--- NOTE | 2019-10-19 17:08 | ER ---
Nurse's Notes [facility] Name: Andrew Devries Age: 53 yrs Sex: Male : 1965 Arrival Date: 10/16/2019 Time: 12:47 Bed 16 Private MD: Vik Diaz R Diagnosis: Dyspnea;Chronic obstructive pulmonary disease with (acute) exacerbation;Tobacco abuse counseling;Tobacco use Presentation: 10/15 12:51 Chief complaint: Patient states: Cough, low grade fever and SOB w/ speaking and ph exertion, reports hx of COPD, also reports diarrhea, denies abdominal pain N/V. Coronavirus screen: Patient reports a cough. Patient reports shortness of breath or difficulty breathing. Patient reports a measured and/or subjective temperature greater than 100.4F. Patient denies travel on a cruise ship or to a country the [facility] currently lists as an affected area. Patient denies contact with known and/or suspected case of COVID-19. Ebola Screen: No symptoms or risks identified at this time. Initial Sepsis Screen: Does the patient meet any 2 criteria? RR > 20 per min. No. Patient's initial sepsis screen is negative. Does the patient have a suspected source of infection? Yes: Productive cough/pneumonia. Risk Assessment: Do you want to hurt yourself or someone else? Patient reports no desire to harm self or others. Onset of symptoms was October 16, 2019. 12:51 Method Of Arrival: Ambulatory ph 12:51 Acuity: MONTY 3 ph Triage Assessment: 15:30 Respiratory: the patient has mild shortness of breath. iw 15:30 Respiratory: Onset: The symptoms/episode began/occurred today. iw Historical: - Allergies: 12:55 PENICILLINS; ph - PMHx: 12:55 GERD; Hypertension; schizoeffective disorder; COPD; ph - PSHx: 12:55 Cholecystectomy; ph - Immunization history:: Adult Immunizations unknown. - Social history:: Smoking status: Patient reports the use of cigarette tobacco products, smokes one pack cigarettes per day. Screenin:25 Abuse screen: Denies threats or abuse. Denies injuries from another. Nutritional ls4 screening: No deficits noted. Tuberculosis screening: No symptoms or risk factors identified. Fall Risk None identified. Assessment: 13:20 Pain: Denies pain. Cardiovascular: Denies chest pain. Respiratory: Airway is patent ls4 Respiratory effort is even, unlabored, Respiratory pattern is regular, Breath sounds are diminished bilaterally. 15:23 General: Appears in no apparent distress. Behavior is calm, cooperative. General: iw Reports fever for feeling ill for. Pain: Complains of pain in anterior aspect of right upper chest and anterior aspect of left upper chest. Neuro: Level of Consciousness is awake, alert, obeys commands, Oriented to person, place, time, situation. Cardiovascular: Reports chest pain, shortness of breath, Capillary refill < 3 seconds in bilateral fingers Patient's skin is warm and dry. Rhythm is regular. Respiratory: Reports shortness of breath on exertion cough that is non-productive, Airway is patent Respiratory effort is even, unlabored, Respiratory pattern is regular, symmetrical. GI: Abdomen is round non-distended. Derm: Skin is intact, is healthy with good turgor. Musculoskeletal: Range of motion: intact in all extremities. 16:45 Reassessment: Patient appears in no apparent distress at this time. Patient and/or iw family updated on plan of care and expected duration. Pain level reassessed. Patient is alert, oriented x 3, equal unlabored respirations, skin warm/dry/pink. Patient states feeling better. Patient states symptoms have improved. Vital Signs: 12:51 BP 118 / 81; Pulse 88; Resp 24; Temp 98.2; Pulse Ox 100% on R/A; Weight 102.06 kg; ph Height 6 ft. 2 in. (187.96 cm); 15:25 Pulse 68; Resp 18 S; Pulse Ox 100% on Non-rebreather mask; iw 12:51 Body Mass Index 28.89 (102.06 kg, 187.96 cm) ph ED Course: 12:47 Patient arrived in ED. ag5 12:48 Vik Diaz MD is Private Physician. ag5 12:54 Triage completed. ph 12:55 Arm band placed on Patient placed in an exam room. ph 13:02 Chris Christian MD is Attending Physician. burke 13:25 Patient has correct armband on for positive identification. Bed in low position. Call ls4 light in reach. Side rails up X 1. campus monitor on. Pulse ox on. Diet: Patient is NPO. 13:26 No provider procedures requiring assistance completed. Patient maintains SpO2 ls4 saturation greater than 95% on room air. 13:27 Hermelinda Xiong, RN is Primary Nurse. ls4 14:45 Chest Single View XRAY In Process Unspecified. EDMS 15:24 Inserted saline lock: 18 gauge in left antecubital area, using aseptic technique. Blood iw collected. IV inserted by Hermelinda Xiong. EZEQUIEL. 15:53 Vik Diaz MD is Referral Physician. burke 15:53 Navin Johnson MD is Referral Physician. burke 17:10 IV discontinued, intact, bleeding controlled, No redness/swelling at site. Pressure iw dressing applied. 17:11 Primary Nurse role handed off by Hermelinda Xiong, EZEQUIEL iw 17:11 Marcie Benitez, EZEQUIEL is Primary Nurse. iw Administered Medications: 14:45 Drug: SOLU-Medrol 125 mg Route: IVP; Site: left antecubital; iw 14:50 Drug: Rocephin 1 grams Route: IV; Rate: per protocol; Site: left antecubital; iw 15:00 Drug: Zithromax 500 mg Route: IVPB; Infused Over: 1 hrs; Site: left antecubital; iw 15:08 Drug: NS 0.9% 1000 ml Route: IV; Rate: 125 ml/hr; Site: left antecubital; iw 15:22 Drug: predniSONE 40 mg Route: PO; iw 15:26 Drug: AtroVENT Aerosol 0.5 mg Route: Inhalation; iw 15:27 Drug: Xopenex 3.75 mg Route: Inhalation; iw Outcome: 15:54 Discharge ordered by MD. burke 17:10 Discharged to home ambulatory. iw 17:10 Condition: good 17:10 Discharge instructions given to patient, Instructed on discharge instructions, follow up and referral plans. medication usage, Demonstrated understanding of instructions, follow-up care, medications, Prescriptions given X 5 17:11 Patient left the ED. iw Addendum: 10/21/2019 17:11 Addendum: Other Pt notified of negative COVID-19 swab results. Advised to remain in d m5 isolation until symptom free for 3 days without medication. Signatures: Dispatcher [employer] EDMS Laura Bhagat RN RN dm5 Anderson, Corey, MD MD cha Williams, Irene, RN RN Ana Schwarz RN RN Hermelinda Xiong RN RN ls4 Rehana Strickland 5
== END 2019-10-16 17:11 | disposition home or self-care (01) ==
LOC: ER 12:45
DX: J44.1 Chronic obstructive pulmonary disease with (acute) exacerbation (principal); Z20.828 Contact with and (suspected) exposure to other viral communicable diseases; Z72.0 Tobacco use; Z71.6 Tobacco abuse counseling
CPT/HCPCS: 93005; 87040 ×2; 87070; 85025; 80048; 36415; 83735; 82550; 85610; 85379; 80076; 87081; 85730; 84484; 82553; 83690; 83880; 87804 ×2; 71045; 96375; 96374; 99285; U0001; J0456; J0696; J7030 ×2; J2930; J7512